=== PATIENT | male | born 1945 | race Caucasian/White ===

== ENCOUNTER 2017-03-02 06:56 | Emergency (ER) | payer BC ==
[2017-03-02 07:21] VITALS: TEMP 100.9
--- NOTE | 2017-03-02 07:22 | ED.PDOC ---
History of Present Illness - General Chief Complaint: General Stated Complaint: L ankle pain Time Seen by Provider: 03/02/17 07:10 Source: RN notes reviewed, Vital Signs reviewed, family - Son Exam Limitations: language barrier - History of Present Illness Initial Comments: Patient comes in with c/o L ankle pain X 2 days. Denies any injury. Denies any other symptoms. Timing/Duration: constant - 2 days Severity: moderate Improving Factors: rest Worsening Factors: movement Associated Symptoms: denies symptoms Allergies/Adverse Reactions: Allergies NO KNOWN ALLERGY Allergy (Verified 09/11/15 17:25) Home Medications: Ambulatory Orders Acetamin W/Cod #3 Tab [Tylenol w/CODEINE #3] 1 ea PO Q4HR PRN #15 tab 03/02/17 Indomethacin [Indomethacin ER] 75 mg PO BID #20 cap 03/02/17 Triad 25 1 tablet PO DAILY 03/02/17 Review of Systems - Review of Systems Constitutional: States: no symptoms reported EENTM: States: no symptoms reported Respiratory: States: no symptoms reported Cardiology: States: no symptoms reported Musculoskeletal: States: see HPI, joint pain - L ankle Skin: States: no symptoms reported Neurological: States: no symptoms reported All other Systems: No Change from Baseline Past Medical History (General) - Patient Medical History Hx Seizures: No Hx Stroke: No Hx Dementia: No Hx Asthma: No Hx of COPD: No Hx Cardiac Disorders: No Hx Congestive Heart Failure: No Hx Pacemaker: No Hx Hypertension: No Hx Thyroid Disease: No Hx Diabetes: No Hx Gastroesophageal Reflux: No Hx Renal Disease: No Hx of HIV: No Hx MRSA: No - Vaccination History Hx Tetanus, Diphtheria Vaccination: No Hx Influenza Vaccination: No Hx Pneumococcal Vaccination: No - Social History Hx Tobacco Use: No Hx Alcohol Use: No Hx Substance Use: No Hx Substance Use Treatment: No Hx Depression: No - Female History Patient : No Family Medical History - Family History Mother Family History: Unknown Living Status: Physical Exam - Physical Exam General Appearance: Alert, Comfortable, No apparent distress, Well Developed, Well Groomed, Well Hydrated, Well Nourished Peripheral Pulses: dorsalis pedis,left: 2+ Extremity: swelling - L ankle, other - L ankle: tenderness around whole ankle. decreased ROM due to pain. No erythema or warmth Neurologic: no motor/sensory deficits, alert, normal mood/affect, oriented x 3 Skin Exam: normal color, warm/dry Comments: Vital Signs 03/02/17 07:12 Temperature 100.9 F H Pulse Rate [L 84 Arm] Respiratory 20 Rate Blood Pressure 105/61 [L Arm] O2 Sat by Pulse 91 L Oximetry Progress - Progress Progress: 03/02/17 07:51 Son now reports history of problem with uric acid. He controls it with his diet and does not take any medication for it. Will give Tylenol #3 and Prednisone 03/02/17 08:13 Discussed X-ray results and diagnosis with patient and son. Recommended follow up with PCP when pain is gone to check uric acid levels Recommended Gout diet which he can find online. - EKG/XRAY/CT XRAY: ankle - Joint effusion, o/w nl per Radiologist Departure - Departure Clinical Impression: Gout attack Qualifiers: Gout site: ankle Gout etiology: idiopathic Laterality: left Qualified Code(s): M10.072 - Idiopathic gout, left ankle and foot Time of Disposition: 08:08 Disposition: Discharge to Home or Self Care Condition: Good Departure Forms: ED Discharge - Pt. Copy, Patient Portal Self Enrollment Instructions: DI for Gout Diet: resume usual diet Activity: increase activity as tolerated Referrals: VIDA HUGGINS [Primary Care Provider] - 1-2 Weeks Prescriptions: Acetamin W/Cod #3 Tab [Tylenol w/CODEINE #3] 1 ea PO Q4HR PRN #15 tab PRN Reason: Moderate To Severe Pain Indomethacin [Indomethacin ER] 75 mg PO BID #20 cap Home Medications: Ambulatory Orders Acetamin W/Cod #3 Tab [Tylenol w/CODEINE #3] 1 ea PO Q4HR PRN #15 tab 03/02/17 Indomethacin [Indomethacin ER] 75 mg PO BID #20 cap 03/02/17 Triad 25 1 tablet PO DAILY 03/02/17
--- NOTE | 2017-03-02 07:48 | RAD ---
Procedure: XR ANKLE 3 OR MORE VIEWS Exam Date: 03/02/2017 Ordering Provider: Sandra Wiley Clinical Indication: ankle pain X 2 days Comparison: None FINDINGS: No acute fracture or subluxation. The articular surface of the left ankle is preserved. Small joint effusion. No significant soft-tissue swelling. No subcutaneous gas evident. No radiopaque foreign body. IMPRESSION: 1. No acute fracture or dislocation of the left ankle. 2. Small joint effusion. Electronically signed by: Rick Lucio MD 03/02/2017 7:47 AM CDT
[2017-03-02] MEDS ORDERED: predniSONE 20 MG TAB PO ONE (07:52)
[2017-03-02] MEDS ORDERED: ACETAMINOPHEN W/COD #3 TAB 1 EA TAB PO ONE (07:52)
[2017-03-02 08:31] VITALS: BP 98/60; O2SAT 94
== END 2017-03-02 08:30 | disposition home or self-care (01) ==
LOC: ER 06:56
DX: M10.072 Idiopathic gout, left ankle and foot (principal)
CPT/HCPCS: 73610; J7512